=== PATIENT | male | born 1965 | race Caucasian/White ===

== ENCOUNTER 2019-05-26 10:46 | Day surgery (SDC) | payer BC ==
[~2019-05-26 10:46] MED LIST: Lactated Ringers 1,000 ML IV SCH; Midazolam 1 MG/ML 2 ML SDV ONE; Propofol 200 MG/20 ML SDV ONE; Sodium Chloride 0.9% 10 ML Syringe FLUSH PRN
--- NOTE | 2019-05-26 12:54 | PCM.PN ---
- General Info Date of Service: 05/26/19 - Review of Systems Systems Review Comment:: 53-year-old male with history of colitis here for colonoscopy. His last colon exam was approximately 5 years ago. He denies any recent changes in bowel pattern or recent rectal bleeding.The patient is medically stable to proceed today. His recent history and physical is reviewed and no significant changes are noted. I have discussed the proposed colonoscopy with the patient. He agrees to proceed accepting risks. - Patient Data Vitals - Most Recent: Last Vital Signs Temp 97.2 F 05/26/19 12:03 Pulse 58 L 05/26/19 12:03 Resp 20 05/26/19 12:03 BP 116/70 05/26/19 12:03 Pulse Ox 95 05/26/19 12:03 Weight - Most Recent: 86.183 kg Med Orders - Current: Current Medications Lactated Ringer's (Ringers, Lactated) 1,000 mls @ 125 mls/hr IV ASDIRECTED ONEYDA Last Admin: 05/26/19 12:23 Dose: 125 mls/hr Sodium Chloride (Saline Flush) 10 ml FLUSH ASDIRECTED PRN PRN Reason: Keep Vein Open Discontinued Medications Midazolam HCl (Versed 1 Mg/Ml) Confirm Administered Dose 2 mg .ROUTE .STK-MED ONE Stop: 05/26/19 08:25 Propofol (Diprivan 20 Ml) Confirm Administered Dose 200 mg .ROUTE .STK-MED ONE Stop: 05/26/19 08:25 - Problem List Review Problem List Initiated/Reviewed/Updated: Yes - My Orders Last 24 Hours: My Active Orders 05/26/19 10:45 Patient Status [ADT] Routine Peripheral IV Care [RC] . DIRECTED Verify Patient Consent Obtain [RC] ASDIRECTED Lactated Ringers [Ringers, Lactated] 1,000 ml IV ASDIRECTED Sodium Chloride 0.9% [Saline Flush] 10 ml FLUSH ASDIRECTED PRN Peripheral IV Insertion Adult [OM.PC] Routine - Assessment Assessment:: history of colitis - Plan Plan:: colonoscopy
[2019-05-26] MEDS ORDERED: Propofol 200 MG/20 ML SDV ONE ×2 (12:55→12:56)
[2019-05-26] MEDS ORDERED: Midazolam 1 MG/ML 2 ML SDV ONE (12:56)
--- NOTE | 2019-05-26 13:24 | PCM.OPNOTE ---
- General Post-Op/Procedure Note Date of Surgery/Procedure: 05/26/19 Operative Procedure(s): Colonoscopy Findings: Moderate sigmoid diverticulosis Pre Op Diagnosis: History of colitis Post-Op Diagnosis: Sigmoid Diverticulosis Anesthesia Technique: MAC Primary Surgeon: Jose Elias Hernandez Pathology: none EBL in mLs: 0 Complications: None Condition: Good
[2019-05-26 17:12] VITALS: BP 122/57; PULSE 57
--- NOTE | 2019-05-26 17:51 | OR ---
Date of Procedure: 05/26/2019 PREOPERATIVE DIAGNOSIS: History of colitis. POSTOPERATIVE DIAGNOSIS: Sigmoid diverticulosis. OPERATION PERFORMED: Colonoscopy. INDICATIONS FOR SURGERY: This 53-year-old male has a known history of colitis several years ago. He comes for followup colonoscopy. FINDINGS: No acute inflammation is seen on today's exam. The patient does have a moderate degree of diverticulosis in the sigmoid colon with multiple diverticula noted here. These are not acutely inflamed. There is no bleeding or other sign of complication from them noted. No polyps were seen on today's exam. DESCRIPTION OF PROCEDURE: The patient was taken to the operating room. He was given intravenous sedation and with him in the left lateral decubitus position, digital rectal exam was performed. No rectal masses were noted. The Olympus colonoscope was inserted into the rectum and retroflexed examination of the rectal canal was performed. The scope was then carefully advanced under direct visualization through the entire length of the colon until the cecum was reached. Cecal acquisition was confirmed by noting the normal internal cecal anatomy including the appendiceal orifice and ileocecal valve. The light was also noted to transilluminate the abdominal wall in the right lower quadrant. The colon was somewhat tortuous and did require hand pressure to reach the cecum, but this was able to be safely accomplished. After the cecum was carefully examined, the scope was slowly withdrawn sequentially re-examining the colonic segments until the entire colon and rectum had been fully examined. The scope was removed and the patient was taken from the operating room in satisfactory condition. ESTIMATED BLOOD LOSS: 0. COMPLICATIONS: None. PROGNOSIS: Good. RUSTY Hernandez MD /[id number]
== END 2019-05-26 14:45 | disposition home or self-care (01) ==
LOC: LL.SDS 10:46
PROVIDERS: ATTEND Surgery
DX: Z09 Encounter for follow-up examination after completed treatment for conditions other than malignant neoplasm (principal); K57.30 Diverticulosis of large intestine without perforation or abscess without bleeding; Q43.8 Other specified congenital malformations of intestine
CPT/HCPCS: J2250; J2704; J7120

== ENCOUNTER 2020-10-21 15:57 | Emergency (ER) | payer BC ==
[2020-10-21 16:04] VITALS: BP 131/69; PULSE 71
--- NOTE | 2020-10-21 16:40 | EDM.PDOC ---
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 [No Known Home Meds] 05/26/19 [History] Past Medical History Gastrointestinal History: Reports: Other (See Below) Other Gastrointestinal History: Infectious colitis Social & Family History - Tobacco Use Tobacco Use Status *Q: Never Tobacco User Second Hand Smoke Exposure: No - Caffeine Use Caffeine Use: Reports: Coffee - Recreational Drug Use Recreational Drug Use: No Review of Systems - Review of Systems Review Of Systems: See Below Musculoskeletal: Reports: Foot Pain ED EXAM, GENERAL - Physical Exam Exam: See Below Exam Limited By: No Limitations General Appearance: Alert, WD/WN, Mild Distress Extremities: Other (Left foot with mild swelling No ecchymosis Tender across mid-foot with palpation More tender on medial side) Course - Vital Signs Last Recorded V/S: Last Vital Signs Temp 97.8 F 10/21/20 15:57 Pulse 71 10/21/20 15:57 Resp 20 10/21/20 15:57 BP 131/69 10/21/20 15:57 Pulse Ox 98 10/21/20 15:57 - Orders/Labs/Meds Orders: Active Orders 24 hr Category Date Time Status Foot 2V Lt [CR] Stat Exams 10/21/20 16:18 Ordered - Re-Assessments/Exams Free Text/Narrative Re-Assessment/Exam: 10/21/20 16:38 Xray No obvious fracture Await xray report Departure - Departure Time of Disposition: 16:45 Disposition: Home, Self-Care 01 Clinical Impression: Foot contusion Qualifiers: Encounter type: initial encounter Laterality: left Qualified Code(s): S90.32XA - Contusion of left foot, initial encounter - Discharge Information *PRESCRIPTION DRUG MONITORING PROGRAM REVIEWED*: Not Applicable *COPY OF PRESCRIPTION DRUG MONITORING REPORT IN PATIENT LI: Not Applicable Instructions: Foot Contusion, [id number] Referrals: Bebe Edgar RN [Primary Care Provider] - Additional Instructions: Ice Elevate Tylenol or Motrin as needed Follow up in clinic Sepsis Event Note (ED) - Evaluation Sepsis Screening Result: No Definite Risk - Focused Exam Vital Signs: Vital Signs Temp Pulse Resp BP Pulse Ox 10/21/20 15:57 97.8 F 71 20 131/69 98 - My Orders Last 24 Hours: My Active Orders 10/21/20 16:18 Foot 2V Lt [CR] Stat - Assessment/Plan Last 24 Hours: My Active Orders 10/21/20 16:18 Foot 2V Lt [CR] Stat
== END 2020-10-21 16:55 | disposition home or self-care (01) ==
LOC: LL.ED 15:57
DX: S90.32XA Contusion of left foot, initial encounter (principal); W20.8XXA Other cause of strike by thrown, projected or falling object, initial encounter
CPT/HCPCS: 73620-LT; 99282; 99283-25

== ENCOUNTER 2021-03-14 07:58 | Day surgery (SDC) | payer BC ==
[2021-03-14] MEDS ORDERED: Lactated Ringers 1,000 ML IV SCH (08:00)
[2021-03-14] MEDS ORDERED: Sodium Chloride 0.9% 10 ML Syringe FLUSH PRN (08:00)
[2021-03-14] MEDS ORDERED: Midazolam 1 MG/ML 2 ML SDV ONE ×2 (08:15→08:58)
[2021-03-14] MEDS ORDERED: fentaNYL 250 MCG/5 ML SDV ONE ×2 (08:15→08:58)
[2021-03-14] MEDS ORDERED: fentaNYL 100 MCG/2 ML SDV ONE (08:15)
[2021-03-14] MEDS ORDERED: Propofol 200 MG/20 ML SDV ONE ×2 (08:16→08:58)
[2021-03-14] MEDS ORDERED: Neostigmine Methylsulfate 10 MG/10 ML MDV ONE (08:58)
[2021-03-14] MEDS ORDERED: Ketorolac 30 MG/ML SDV ONE (08:58)
[2021-03-14] MEDS ORDERED: Dexamethasone 10 MG/ML SDV ONE (08:58)
[2021-03-14] MEDS ORDERED: Succinylcholine 200 MG/10 ML MDV ONE (08:58)
[2021-03-14] MEDS ORDERED: Ondansetron 4 MG/2 ML SDV ONE (08:58)
[2021-03-14] MEDS ORDERED: ceFAZolin 1 GM Vial ONE ×2 (08:58→09:42)
[2021-03-14] MEDS ORDERED: Glycopyrrolate 0.2 MG/ML SDV ONE (08:58)
[2021-03-14] MEDS ORDERED: Rocuronium 100 MG/10 ML MDV ONE (08:58)
--- NOTE | 2021-03-14 09:03 | PCM.PN ---
- General Info Date of Service: 03/14/21 - Review of Systems Systems Review Comment:: 55-year-old male here for bilateral inguinal hernia repair. He is medically stable to proceed today. There has been no significant change in his health status since his recent evaluation. I have discussed the proposed inguinal hernia repair with the patient again. His questions were answered. He agrees to proceed excepting risks. Sites are confirmed with the patient and marked. - Patient Data Vitals - Most Recent: Last Vital Signs Temp 98.6 F 03/14/21 08:41 Pulse 60 03/14/21 08:45 Resp 16 03/14/21 08:45 BP 130/80 03/14/21 08:45 Pulse Ox 100 03/14/21 08:45 Weight - Most Recent: 87.543 kg Med Orders - Current: Current Medications Lactated Ringer's (Ringers, Lactated) 1,000 mls @ 125 mls/hr IV ASDIRECTED ONEYDA Last Admin: 03/14/21 08:45 Dose: 125 mls/hr Documented by: Sodium Chloride (Sodium Chloride 0.9% 10 Ml Syringe) 10 ml FLUSH ASDIRECTED PRN PRN Reason: Keep Vein Open Discontinued Medications Fentanyl (Fentanyl 100 Mcg/2 Ml Sdv) Confirm Administered Dose 100 mcg .ROUTE .STK-MED ONE Stop: 03/14/21 08:16 Fentanyl (Fentanyl 250 Mcg/5 Ml Sdv) Confirm Administered Dose 250 mcg .ROUTE .STK-MED ONE Stop: 03/14/21 08:16 Midazolam HCl (Midazolam 1 Mg/Ml 2 Ml Sdv) Confirm Administered Dose 2 mg .ROUTE .STK-MED ONE Stop: 03/14/21 08:16 Propofol (Propofol 200 Mg/20 Ml Sdv) Confirm Administered Dose 200 mg .ROUTE .STK-MED ONE Stop: 03/14/21 08:17 Sevoflurane (Sevoflurane 250 Ml Bottle) Confirm Administered Dose 250 ml .ROUTE .STK-MED ONE Stop: 03/14/21 08:36 Sepsis Event Note - Focused Exam Vital Signs: Vital Signs Temp Pulse Resp BP Pulse Ox 03/14/21 08:45 60 16 130/80 100 03/14/21 08:41 98.6 F - Problem List Review Problem List Initiated/Reviewed/Updated: Yes - My Orders Last 24 Hours: My Active Orders 03/14/21 08:00 Patient Status [ADT] Routine Peripheral IV Care [RC] . DIRECTED Verify Patient Consent Obtain [RC] ASDIRECTED Lactated Ringers [Ringers, Lactated] 1,000 ml IV ASDIRECTED Sodium Chloride 0.9% [Saline Flush] 10 ml FLUSH ASDIRECTED PRN Peripheral IV Insertion Adult [OM.PC] Routine - Assessment Assessment:: Bilateral inguinal hernias - Plan Plan:: Bilateral inguinal hernia repair
[2021-03-14] MEDS ORDERED: Bupivacaine 0.25%/EPINEPHrine 1:200,000 30 ML SDV INFILT ONE (09:59)
--- NOTE | 2021-03-14 11:45 | PCM.OPNOTE ---
- General Post-Op/Procedure Note Date of Surgery/Procedure: 03/14/21 Operative Procedure(s): Bilateral inguinal hernia repair with mesh Findings: Moderate sized right indirect inguinal hernia Small left indirect and moderate sized left direct inguinal hernia bilateral moderate sized cord lipomas Pre Op Diagnosis: Bilateral inguinal hernias Post-Op Diagnosis: Same Anesthesia Technique: General ET Tube Primary Surgeon: Jose Elias Hernandez Pathology: right inguinal hernia sac and bilateral cord lipomas EBL in mLs: 30 Complications: None Condition: Good
--- NOTE | 2021-03-14 12:52 | OR ---
Date of Procedure: 03/14/2021 PREOPERATIVE DIAGNOSIS: Bilateral inguinal hernias. POSTOPERATIVE DIAGNOSES: Right indirect inguinal hernia, left indirect and direct inguinal hernia, and bilateral cord lipomas. OPERATION PERFORMED: Bilateral inguinal hernia repair with mesh. INDICATIONS FOR SURGERY: This 55-year-old male has developed a painful bulge in the right groin and findings were consistent with an inguinal hernia. CT scan has also documented a small fat containing hernia on the left side as well. FINDINGS: On the right side, the patient has a moderate-sized indirect inguinal hernia, this is empty. There is also a moderate-sized cord lipoma. In the left groin, there is a very small indirect inguinal hernia, but a moderate-sized direct inguinal hernia and a moderate-sized cord lipoma. DESCRIPTION OF PROCEDURE: The patient was taken to the operating room. He was given general endotracheal anesthesia in the inguinal region, sterilely prepped with Betadine and draped. Right groin incision was made and carried down to the external oblique fascia which was incised opening the external ring. The ilioinguinal nerve was carefully identified and preserved. The spermatic cord is isolated and explored. The indirect hernia sac was identified, from the cord structures down to the level of the internal ring. It was opened, found to be empty. It was then rotated on its axis and suture-ligated with 2-0 Vicryl at the level of the internal ring, reinforcing tie at this level of 2-0 Vicryl was also placed. The sac was amputated distal to these ties. Additional exploration of the cord identified a moderate size lipoma which was freed down to the level of the internal ring and this was amputated at this level and tied off with 2-0 Vicryl. The floor of the inguinal canal was then reinforced by securing a large size keyhole-shaped piece of polypropylene mesh into position on the right groin. The inferior edge of the mesh was secured to the Isaac's ligament medial to the femoral vessels and the shelving portion of the inguinal ligament anterior to these vessels with interrupted 0 Prolene. Superior edge of the mesh was secured to the internal oblique fascia near its fusion with the external oblique fascia also with interrupted 0 Prolene. The spermatic cord and ilioinguinal nerve were passed through the keyhole defect and the tails of the mesh were secured to each other lateral to the cord with interrupted 0 Prolene recreating the internal ring such that it would admit one finger tip alongside the spermatic cord. The tails of the mesh were trimmed and laid into the space lateral to the internal ring between the internal and external oblique fascia. This created a secure enforcement of the floor of the inguinal canal. The wound was irrigated with Ancef and saline solution which had also been used to soak the mesh prior to its placement. External oblique fascia was re-approximated with a running 2-0 Vicryl recreating the external ring. The wound was infiltrated with Marcaine. Saba's fascia was closed with interrupted 4-0 Vicryl and the skin was closed with a running 4-0 Vicryl subcuticular stitch. Attention was turned to the left groin where a linear left groin incision was made corresponding to the right side. Dissection here was carried down to the external oblique fascia which was incised opening the external ring. Again, the ilioinguinal nerve is identified, carefully preserved, and the spermatic cord is isolated and explored. On the left side only a very small indirect inguinal hernia sac was identified. This was obliterated with 2-0 Vicryl suture ligature. The spermatic cord did contain a moderate size lipoma and this was from the cord structures down to the level of the internal ring and amputated at this level with ties of 2-0 Vicryl being placed. The floor of the inguinal canal on the left side was also reinforced with a large size keyhole piece of polypropylene mesh. The inferior edge was secured to the Isaac's ligament medial to the femoral vessels and the shelving portion of the inguinal ligament anterior to these vessels with interrupted 0 Prolene. Superior edge of the mesh was secured to the internal oblique fascia near its fusion with the external oblique fascia also with interrupted 0 Prolene. The spermatic cord and ilioinguinal nerve were passed through the keyhole defect and the tails of the mesh were secured to each other lateral to this cord recreating the internal ring such that it would admit one finger tip alongside the spermatic cord. The tails of the mesh were trimmed and laid into the space lateral to the internal ring between the internal and external oblique fascia. The wound was irrigated with Ancef and saline solution which had also been used to soak this mesh prior to its placement. The external oblique fascia was then reapproximated with a running 2-0 Vicryl recreating the external ring. The wound was infiltrated with Marcaine and closure was completed by approximating the Saba's fascia with interrupted 4-0 Vicryl and the skin with running 4-0 Vicryl subcuticular stitch. Steri-Strips and benzoin were applied, followed by antibiotic ointment and sterile dressings. The patient was then awakened, extubated, and taken from the operating room in satisfactory condition. ESTIMATED BLOOD LOSS: 30 mL. COMPLICATIONS: None. PROGNOSIS: Good. RUSTY Hernandez MD /[id number]
[2021-03-14 12:54] VITALS: BP 127/76; PULSE 77
== END 2021-03-14 13:50 | disposition home or self-care (01) ==
LOC: LL.SDS 07:58
PROVIDERS: ATTEND Surgery
DX: K40.20 Bilateral inguinal hernia, without obstruction or gangrene, not specified as recurrent (principal); D17.6 Benign lipomatous neoplasm of spermatic cord; E78.5 Hyperlipidemia, unspecified; Z79.899 Other long term (current) drug therapy; Z98.890 Other specified postprocedural states
CPT/HCPCS: 49505; C1781; J0330; J0690; J1100; J1885; J2250; J2405; J2704; J2710; J3010; J3490; J7120; 00830

== ENCOUNTER 2024-10-13 09:51 | Day surgery (SDC) | payer BC ==
[~2024-10-13 09:51] MED LIST changes: -Lactated Ringers 1,000 ML IV SCH; -Midazolam 1 MG/ML 2 ML SDV ONE
[2024-10-13] MEDS: Lactated Ringers 1,000 ML IV SCH (10:45)
[2024-10-13 12:20] VITALS: BP 104/64; PULSE 63
== END 2024-10-13 12:05 | disposition home or self-care (01) ==
LOC: LL.SDS 09:51
PROVIDERS: ATTEND Surgery
DX: Z12.11 Encounter for screening for malignant neoplasm of colon (principal); K57.30 Diverticulosis of large intestine without perforation or abscess without bleeding; E78.5 Hyperlipidemia, unspecified; Z79.899 Other long term (current) drug therapy; Z91.013 Allergy to seafood
CPT/HCPCS: 00811; J2704; J7120